=== PATIENT | female | born 1965 | race American Indian/Alaskan Native ===

== ENCOUNTER 2018-04-22 23:40 | Emergency (ER) | payer OTHER ==
[2018-04-23 00:40] VITALS: PULSE 64
[2018-04-23] MEDS ORDERED: MOTRIN 600 MG PO ONE (01:01)
[2018-04-23] MEDS ORDERED: MOTRIN 600 MG ONE (01:09)
--- NOTE | 2018-04-23 01:34 | ERPHSYRPT ---
- History of Present Illness Time Seen by Provider: 04/23/18 00:34 Source: patient Exam Limitations: clinical condition Patient Subjective Stated Complaint: Pt states that she was outside stepped in a trench fell an injured left ankle, Denies hitting head or Denies other injuries Triage Nursing Assessment: Swelling to left lateral malleolus, with + 2 Dorsalis Pedis. <3 sec cap refill Physician History: PATIENT STATES SHE SLIPPED STEPPED INTO TRENCH AND TWISTED HER LEFT FOOT AND ANKLE. HAS MARKED PAIN UPON WEIGHT BEARING. DENIES DEFORMITY OR BRUISING. Method of Injury: twisted Occurred: this evening Quality: constant Severity of Pain-Max: moderate Severity of Pain-Current: moderate Lower Extremities Pain: foot: left, ankle: left Modifying Factors: Improves With: movement Associated Symptoms: unable to bear weight Allergies/Adverse Reactions: propoxyphene [From Darvon] Adverse Reaction (Verified 04/23/18 00:41) Nausea and Vomiting Home Medications: Alprazolam [Xanax Xr] 0.5 mg PO TID PRN PRN 04/23/18 [History] Clonidine HCl [Catapres] 0.1 mg PO DAILY 04/23/18 [History] Fenofibrate,Micronized [Fenofibrate] 135 mg PO DAILY 04/23/18 [History] Montelukast Sodium 10 mg [Singulair 10 MG] 10 mg PO DAILY 04/23/18 [History] - Review of Systems Musculoskeletal: Injury, Joint Pain, Joint Swelling - Past Medical History Pertinent Past Medical History: Yes Neurological History: Migraines ENT History: No Pertinent History Cardiac History: Other Respiratory History: No Pertinent History Endocrine Medical History: No Pertinent History Musculoskeletal History: No Pertinent History GI Medical History: No Pertinent History History: No Pertinent History Psycho-Social History: No Pertinent History Female Reproductive Disorders: No Pertinent History Other Medical History: High Triglycerides - Past Surgical History Past Surgical History: Yes Gastrointestinal: Cholecystectomy Musculoskeletal: Orthopedic Surgery Female Surgical History: Hysterectomy Other Surgical History: Right Elbow, Ganglion cyst - Social History Smoking Status: Never smoker Exposure to second hand smoke: No Drug Use: none Patient Lives Alone: No - Female History Hx Now: No - Nursing Vital Signs Nursing Vital Signs: Initial Vital Signs Temperature 98.5 F 04/23/18 00:20 Pulse Rate 64 04/23/18 00:20 Respiratory Rate 20 04/23/18 00:20 Blood Pressure 136/65 04/23/18 00:20 O2 Sat by Pulse Oximetry 98 04/23/18 00:20 Pain Scale Pain Intensity 9 - Physical Exam General Appearance: no apparent distress Ankle Exam: left ankle: limited range of motion, pain, soft tissue tenderness ( SOFT TISSUE TENDERNESS, LEFT LATERAL MALLEOLUS, NO JOINT LAXITY, NEG ANTRIOR DRAW SIGN, TENEDERMESS LEFT FOOT BASE OF LEFT 5TH METATARSAL, MODERATE PROXIMAL FOOT SWELING. LEFT PEDIS PULSSE 2+) Foot Exam: left foot: bone tenderness, soft tissue tenderness, swelling DTR - Lower Extremities Exam: knee (R): 2+, knee (L): 2+, ankle (R): 2+, ankle ( L): 2+ SpO2: 98 Oxygen Delivery: Room Air Ordered Tests: Active Orders 24 hr Category Date Time Status Crutches STAT Care 04/23/18 01:06 Active ANKLE (3 VIEWS) Stat Exams 04/23/18 01:00 Taken FOOT (MINIMUM 3 VIEWS) Stat Exams 04/23/18 01:00 Taken Medication Summary Discontinued Medications Generic Name Dose Route Start Last Admin Trade Name Nadia PRN Reason Stop Dose Admin Ibuprofen 600 mg 04/23/18 01:01 04/23/18 01:19 Motrin 600 Mg PO 04/23/18 01:02 600 mg STAT ONE Administration Ibuprofen Confirm 04/23/18 01:09 Motrin 600 Mg Administered 04/23/18 01:10 Dose 600 mg .ROUTE .STK-MED ONE - Progress Progress Note: 04/23/18 01:35 MOTRIN 600MG ORALLY. APPLICATION LEFT ANKLE VELCRO SPLINT. AND FITTED FOR CRUTCHES Counseled pt/family regarding: diagnosis, need for follow-up - Departure Time of Disposition: 01:45 Departure Disposition: Home Clinical Impression: LEFT FOOT STRAIN, Left ankle strain Condition: Stable Critical Care Time: No Referrals: SOCO MACHADO II [Primary Care Provider] - Additional Instructions: AMBULATE USING CRUTCHES NONWEIGHT BEARING LEFT FOOT X 5 DAYS. ELEVATE FOOT ABOVE WAIST AND APPLY ICE OVER LEFT FOOT AND ANKLE SWELLING EVERY 4 HOURS, DURATION 45 MINUTES FOR 48 HOURS. WEAR VELCRO ANKLE SPLINT FOR COMFORT. MOTRIN 600MG EVERY 6 HOURS FOR PAIN NEEDED, TYLENOL #3 EVERY 6 HOURS FOR BREAK THROUGH PAIN. Prescriptions: Codeine Phosphate/APAP #3 [Tylenol #3 Tablet] 1 tab PO Q6H PRN PRN #8 tablet PRN Reason: Pain Ibuprofen 600 mg PO Q6H PRN PRN #20 tablet PRN Reason: Pain
[2018-04-23 02:03] VITALS: BP 124/76; O2SAT 100
--- NOTE | 2018-04-23 22:36 | XRAY ---
Exam: 3 view left ankle series from 04/23/2018. Comparison: None. Indication: Fall. Findings: AP, oblique, and lateral radiographs of the left ankle were obtained. I see no acute fracture or dislocation of the left ankle. There is some minimal spurring at the inferior margin of the medial malleolus. The left ankle mortise is well-preserved and appears uniform. A large plantar left calcaneal spur is seen. The base of the left fifth metatarsal appears intact. Impression: 1. No acute fracture or dislocation of the left ankle is seen.
--- NOTE | 2018-04-23 22:40 | XRAY ---
Exam: 3 view left foot series from 04/23/2018. Comparison: None. Indication: Fall. Findings: AP, oblique, and lateral radiographs of the left foot were obtained. I see no acute fracture or dislocation. The joint spaces appear unremarkable. There is a large plantar left calcaneal spur. The plantar arch is normal. No radiopaque soft tissue foreign body is seen. The tarsal-metatarsal junctions align correctly. Impression: 1. No acute fracture or dislocation of the left foot is seen. 2. Large plantar left calcaneal spur measuring about 12 mm in length and 8 mm in thickness.
== END 2018-04-23 02:20 | disposition home or self-care (01) ==
LOC: ED 23:40
DX: S96.912A Strain of unspecified muscle and tendon at ankle and foot level, left foot, initial encounter (principal); X50.1XXA Overexertion from prolonged static or awkward postures, initial encounter; Z79.899 Other long term (current) drug therapy
CPT/HCPCS: 73610; 73630; 99284; A9270-GY